=== PATIENT | male | born 1970 | race Caucasian/White ===

== ENCOUNTER 2019-08-20 17:29 | Emergency (ER) | payer OTHER, BC, SELFPAY ==
[2019-08-20 17:30] VITALS: BP 152/112; PULSE 97; RESP 14; TEMP 36.6; O2SAT 98; BMI 46.1
--- NOTE | 2019-08-20 18:08 | DI.RAD.S_ITS ---
PROCEDURE: XR HUMERUS RT 2V INDICATIONS: possible biceps rupture TECHNIQUE: 2 views of the humerus were acquired. COMPARISON: None. FINDINGS: Bones: No fractures or dislocations. Sclerotic focus in the humeral head is likely a bone island. Soft tissues: No suspicious soft tissue calcifications. IMPRESSION: No acute osseous abnormalities. Dictated by: Mikala Dow M.D. on 08/20/2019 at 18:20 Approved by: Mikala Dow M.D. on 08/20/2019 at 18:22
--- NOTE | 2019-08-20 18:12 | ED.UPPEXIN ---
HPI - Extremity Injury (Upper) <ALBINO Flores - Last Filed: 08/20/19 19:45> General Chief Complaint: Extremity Injury, Upper Stated Complaint: Possible torn bicep Time Seen by Provider: 08/20/19 17:46 Source: patient Mode of arrival: Ambulatory Limitations: no limitations History of Present Illness HPI narrative: 49-year-old male presenting to the emergency department for right bicep pain that started about an hour ago. He states he was pulling on a lever, he states ?I heard a pop and felt the inside and the outside roll up inside my arm. Patient states the pain is a dull aching 7/10 that is worse with arm movement. He has been putting ice on the area and has taken ibuprofen. Patient states that his left biceps was torn, was recently appeared in December 2018. Patient also has a history of tearing his left pectoralis muscle. He denies any fevers, chills, nausea, vomiting, diarrhea, chest pain, shortness of breath, or any other concerns. Related Data Home Medications Medication Instructions Recorded Confirmed losartan-hydrochlorothiazide 1 tab PO DAILY 08/20/19 08/20/19 metformin 300 mg PO TID 08/20/19 08/20/19 rosuvastatin 10 mg PO DAILY 08/20/19 08/20/19 Allergies Allergy/AdvReac Type Severity Reaction Status Date / Time No Known Drug Allergies Allergy Verified 08/20/19 17:52 Review of Systems <ALBINO Flores - Last Filed: 08/20/19 19:45> Review of Systems Narrative: REVIEW OF SYSTEMS: GENERAL: Denies fever or chills. HENT: No head trauma. CARDIOVASCULAR: No chest pain or syncope. RESPIRATORY: No shortness of breath or cough. GASTROINTESTINAL: No nausea, vomiting, diarrhea, or constipation. GENITOURINARY: No flank pain or dysuria. MUSCULOSKELETAL: Complains of right arm pain, see HPI. INTEGUMENTARY: No rash, lesions, or pruritus. NEURO: No numbness, tingling. Patient History <ALBINO Flores - Last Filed: 08/20/19 19:45> Medical History No significant medical problems (Acute) Social History Smoking Status: Never smoker Smoking Status: Never smoker alcohol intake frequency: 3 or more drinks per day Alcohol type: beer Substance Use Type: does not use Exam <ALBINO Flores - Last Filed: 08/20/19 19:45> Initial Vital Signs Initial Vital Signs: Vital Signs Temperature 97.8 F 08/20/19 17:30 Pulse Rate 97 H 08/20/19 17:30 Respiratory Rate 14 08/20/19 17:30 Blood Pressure 152/112 H 08/20/19 17:30 Pulse Oximetry 98 08/20/19 17:30 PHYSICAL EXAMINATION: GENERAL: Well groomed, alert, and cooperative. Answers questions promptly and appropriately. Vital signs noted. HENT: Normocephalic, atraumatic. EYES: Symmetrical, sclera white, no periorbital swelling. CARDIOVASCULAR: S1 and S2 sounds normal. Regular rate and rhythm, no murmurs, clicks, or bruits. No pedal edema. RESPIRATORY: Normal respiratory rate, trachea midline, airway patent. No stridor, nasal flaring or accessory muscle use. Lungs are clear in all wilson. MUSCULOSKELETAL: Significant tenderness noted to palpation of right biceps, patient has pain with arm extension, cannot completely raise arm over his head due to pain. 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 Patient reports significant pain with straightening right arm, however he is able to straighten it almost to 180?. Right arm appears more swollen than left. Difficult to determine large bulge, unable to look biceps tendon or localized swelling due to body habitus. EXTREMITIES: CMS intact. No pedal edema. SKIN: Warm, dry, soft, appropriate color for ethnicity. No lesions, rashes, or wounds. NEURO: Alert and Oriented X 3. No sensory deficits. PSYCH: Appropriate affect and mood. <Montserrat Cordoba DO - Last Filed: 08/20/19 20:19> Initial Vital Signs Initial Vital Signs: Vital Signs Temperature 97.8 F 08/20/19 17:30 Pulse Rate 97 H 08/20/19 17:30 Respiratory Rate 14 08/20/19 17:30 Blood Pressure 152/112 H 08/20/19 17:30 Pulse Oximetry 98 08/20/19 17:30 Course <ALBINO Flores - Last Filed: 08/20/19 19:45> Orders Ordered: ED Orders 08/20/19 18:08 XR humerus RT 2V Stat Consultations Consultation #1: Patient staffed with Dr. Cordoba I spoke with Dr. Mcintosh, orthopedic, who suggested follow-up within 2 weeks for MRI and possible repair. We are unable to get an MRI in the emergency department tonight as it is a weekend and late at night, no staff is available. Vital Signs Vital signs: Vital Signs - 8 hr 08/20/19 17:30 08/20/19 19:18 Temperature 97.8 F 98.1 F Pulse Rate 97 H 94 H Respiratory Rate 14 24 Blood Pressure 152/112 H Blood Pressure [Right Arm] 164/106 H Pulse Oximetry 98 <Montserrat Cordoba DO - Last Filed: 08/20/19 20:19> Orders Ordered: ED Orders 08/20/19 18:08 XR humerus RT 2V Stat Vital Signs Vital signs: Vital Signs - 8 hr 08/20/19 17:30 08/20/19 19:18 Temperature 97.8 F 98.1 F Pulse Rate 97 H 94 H Respiratory Rate 14 24 Blood Pressure 152/112 H Blood Pressure [Right Arm] 164/106 H Pulse Oximetry 98 MDM - Extremity Injury (Upper) <ALBINO Flores - Last Filed: 08/20/19 19:45> Medical Records Attestation: I reviewed the patient's medical records. Lab Data Attestation: I reviewed the patient's lab results. Imaging Data Extremity x-ray #1: Radiologist's Impression: [address] [address] XRay Report Signed Patient: Carlos Joyce PMR#: [id number] : 1970Acct:[id number] Age/Sex: 49 / MDate of Service: 08/20/19 Loc: ED Accession Number: [id number] Procedure: XR humerus RT 2V Ordering Provider: Greer Mercado PROCEDURE: XR HUMERUS RT 2V INDICATIONS: possible biceps rupture TECHNIQUE: 2 views of the humerus were acquired. COMPARISON: None. FINDINGS: Bones: No fractures or dislocations. Sclerotic focus in the humeral head is likely a bone island. Soft tissues: No suspicious soft tissue calcifications. IMPRESSION: No acute osseous abnormalities. Dictated by: Mikala Dow M.D. on 08/20/2019 at 18:20 Approved by: Mikala Dow M.D. 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 I suspect that he may have at least a partial tear due to mechanism of injury and pain. However, I do not suspect this is complete as he has good strength against resistance, nearly full range of motion. However, it was difficult to determine a bulge or hook the biceps tendon due to body habitus. After discussion with orthopedic, he was referred per discussion. He was encouraged to contact them on Thursday to schedule an appointment as soon as possible. Patient was counseled that this medication be time sensitive. He was encouraged to take ibuprofen as needed for pain. Return precautions discussed. Patient agreed to plan of care verbalized understanding. Discharge Plan Departure Patient Disposition: Home Clinical Impression: Biceps muscle strain Qualifiers: Encounter type: initial encounter Laterality: right Qualified Code(s): S46.211A - Strain of muscle, fascia and tendon of other parts of biceps, right arm, initial encounter Discharge Date/Time: 08/20/19 19:35 Activity Restrictions/Additional Instructions: Thank you for entrusting me with your care today. As discussed, x-ray shows no fractures, it is difficult to see the biceps tendon on the x-ray. It is possible you may have a tear in your biceps tendon. Please call your previous surgeon or the surgeon below on Thursday to schedule an appointment as soon as possible. You may use the sling for significant pain but remember to remove the sling frequently and move your arm multiple times a day to prevent muscle shrinking. Take ibuprofen as needed for pain. Return emergency department for any new or worsening symptoms. Prescriptions: No Action losartan-hydrochlorothiazide 100-25 mg tablet 1 tab PO DAILY RF: 0 metformin 500 mg tablet extended release 24 hr 300 mg PO TID RF: 0 rosuvastatin 10 mg tablet 10 mg PO DAILY RF: 0 Referrals: Stephanie Ferris MD [Non-Staff] -
--- NOTE | 2019-08-20 18:38 | PC.NURSE ---
Patient voices no needs at this time and is awaiting axra
--- NOTE | 2019-08-20 18:38 | PC.NURSE ---
Patient denies any needs at this time and is awaiting xray results.
[2019-08-20 19:18] VITALS: BP 164/106; PULSE 94; RESP 24; TEMP 36.7
== END 2019-08-20 19:35 | disposition home or self-care (01) ==
PROVIDERS: Emergency Provider Nurse Practitioner
DX: S46.211A Strain of muscle, fascia and tendon of other parts of biceps, right arm, initial encounter (principal); X50.0XXA Overexertion from strenuous movement or load, initial encounter
CPT/HCPCS: 73060; 99283